=== PATIENT | male | born 1970 | race Caucasian/White ===

== ENCOUNTER 2019-09-16 09:33 | Inpatient (IN) | payer OTHER ==
[~2019-09-16] VITALS: Ht 167.6 cm; Wt 126.5 kg
--- NOTE | 2019-09-16 09:41 | NUR ---
Pt refusing wheelchair from triage to room
--- NOTE | 2019-09-16 10:11 | NUR ---
PT TO ROOM 6 PER PEDIS. PT HAS HAD CHEST PAIN X2 WEEKS, AND AFTER SEEING HIS PCP, HE WAS SENT TO THE ED. PT DENIES PAIN AT THIS TIME. STATES "THE PAIN IN WORSE IN THE EVENING, [place] WHEN WALKING UP THE STAIRS TO BED OR THE HILL TO GET THE MAIL. PT PLACED ON MONITOR, IN GOWN, IV STARTED, CALL LIGHT AND BLANKET DENIED.
[2019-09-16 10:15] LABS: BASOPHILS # (AUTO) 0.03 x10^3/uL (0-0.1); BASOPHILS % (AUTO) 0 % (0-1); EOSINOPHILS # (AUTO) 0.05 x10^3/uL (0-0.4); EOSINOPHILS % (AUTO) 1 % (1-7); LYMPHOCYTES # (AUTO) 2.94 x10^3/uL (1-3.4); LYMPHOCYTES % (AUTO) 27 % (22-44); MD NO; MEAN CORPUSCULAR HEMOGLOBIN 31.6 pg (27.5-34.5); MEAN CORPUSCULAR HGB CONC 33.5 g/dL (33.2-36.2); MEAN CORPUSCULAR VOLUME 94.3 fL (81-97); MEAN PLATELET VOLUME 7.4 fL (7.4-10.4); MONOCYTES # (AUTO) 0.83 x10^3/uL (0.2-0.8); MONOCYTES % (AUTO) 8 % (2-9); NEUTROPHILS # (AUTO) 6.97 x10^3/uL (1.8-6.8); NEUTROPHILS % (AUTO) 65 % (42-75); PLATELET COUNT 355 x10^3/uL (130-400); RED CELL DISTRIBUTION WIDTH 12.9 % (9.4-14.8)
[2019-09-16 10:26] LABS: ALANINE AMINOTRANSFERASE 31 U/L (12-78); ALBUMIN 3.8 g/dL (3.4-5.0); ANION GAP 7 mmol/L (5-15); CALCIUM 8.9 mg/dL (8.5-10.1); CHLORIDE 106 mmol/L (98-107); CREATININE 0.87 mg/dL (0.7-1.3)
[2019-09-16 10:31] LABS: ALKALINE PHOSPHATASE 81 U/L (45-117); BILIRUBIN,TOTAL 0.4 mg/dL (0.2-1.0); TOTAL PROTEIN 7.5 g/dL (6.4-8.2)
[2019-09-16 10:34] LABS: TROPONIN I 0.162 ng/mL (0.000-0.045)
[2019-09-16] MEDS ORDERED: HEPARIN 5,000 UNITS/ML, 1ML IV PRN (11:00)
[2019-09-16] MEDS ORDERED: HEPARIN 25,000 UNITS/250ML PMX 250 ML IV PRN (11:00)
[2019-09-16] MEDS ORDERED: HEPARIN 5,000 UNITS/ML, 1ML IV ONE (11:00)
[2019-09-16 11:07] LABS: INTERNATIONAL NORMALIZED RATIO 0.94 (0.93-1.1)
[2019-09-16] MEDS ORDERED: LISINOPRIL 10 MG TABLET PO ONE (12:00)
[2019-09-16] MEDS ORDERED: NITROGLYCERIN 0.4 MG BOTTLE (25 TABS) SL PRN ×2 (12:00)
[2019-09-16] MEDS ORDERED: SODIUM CHLORIDE 0.9% 1,000 ML IV SCH ×2 (12:00→14:40)
[2019-09-16] MEDS ORDERED: LABETALOL 5MG/ML, 20ML IVPush PRN (12:00)
[2019-09-16] MEDS ORDERED: hydrALAzine 20 MG/ML, 1ML IVPush PRN (12:00)
[2019-09-16] MEDS ORDERED: IBUPROFEN 600 MG TABLET PO PRN (12:00)
[2019-09-16] MEDS ORDERED: POLYETHYLENE GLYCOL 17 GM PACKET PO PRN (12:00)
[2019-09-16] MEDS ORDERED: METOPROLOL TARTRATE 25 MG TAB PO ONE (12:00)
[2019-09-16] MEDS ORDERED: DOCUSATE 100 MG CAPSULE PO PRN (12:00)
[2019-09-16] MEDS ORDERED: ONDANSETRON ODT 4 MG PO PRN (12:00)
[2019-09-16] MEDS ORDERED: NITROGLYCERIN 0.4 MG/SPRAY SL PRN (12:00)
[2019-09-16] MEDS ORDERED: NICOTINE 7 MG/24 HR PATCH.TD24 TD SCH (12:00)
[2019-09-16] MEDS ORDERED: METOCLOPRAMIDE 5 MG/ML, 2ML IVPush PRN (12:00)
[2019-09-16] MEDS ORDERED: TRAZODONE 50MG TABLET PO PRN (12:00)
[2019-09-16 12:24] LABS: FREE T4 (FREE THYROXINE) 1.25 ng/dL (0.76-1.46)
[2019-09-16] MEDS ORDERED: LISINOPRIL 10 MG TABLET ONE (12:52)
[2019-09-16] MEDS ORDERED: METOPROLOL TARTRATE 25 MG TAB ONE (12:52)
[2019-09-16] MEDS ORDERED: IBUPROFEN 200 MG TABLET ONE (12:53)
[2019-09-16] MEDS ORDERED: NICOTINE 7 MG/24 HR PATCH.TD24 ONE (12:53)
[2019-09-16] MEDS ORDERED: FENTANYL PF 100 MCG/2ML ONE (13:39)
[2019-09-16] MEDS ORDERED: VERAPAMIL 2.5 MG/ML, 2ML ONE (13:40)
[2019-09-16] MEDS ORDERED: HEPARIN 1,000 UNITS/ML, 10ML ONE (13:40)
[2019-09-16] MEDS ORDERED: MIDAZOLAM 1 MG/ML, 5ML ONE (13:40)
[2019-09-16] MEDS ORDERED: LIDOCAINE-MPF 1%, 5ML ONE (13:40)
[2019-09-16] MEDS ORDERED: BIVALIRUDIN 250 MG ONE (13:40)
[2019-09-16] MEDS ORDERED: PRASUGREL 10 MG TABLET ONE (14:34)
[2019-09-16] MEDS ORDERED: BIVALIRUDIN 250 MG in SODIUM CHLORIDE 0.9% 50 ML IV SCH (14:40)
[2019-09-16] MEDS: POTASSIUM CHLORIDE 20 MEQ TAB.ER.PRT PO SCH ×2 (16:18→17:39)
[2019-09-16 16:29] VITALS: BP 152/92
[2019-09-16] MEDS ORDERED: AMLO5TAB10 PO (17:35)
[2019-09-16] MEDS ORDERED: LISI1TAB19 PO (17:35)
[2019-09-16 17:53] LABS: TROPONIN I 0.297 ng/mL (0.000-0.045)
[2019-09-16] MEDS ORDERED: ACETAMINOPHEN 325 MG TABLET PO PRN (18:00)
[2019-09-16] MEDS ORDERED: AMLODIPINE 5 MG TABLET PO SCH (18:00)
[2019-09-16 19:07] VITALS: BP 137/80
[2019-09-16] MEDS: FAMOTIDINE 20 MG TABLET PO SCH (20:20)
[2019-09-16] MEDS ORDERED: ATORVASTATIN 40 MG TABLET PO SCH (21:00)
[2019-09-16 21:43] LABS: TROPONIN I 0.411 ng/mL (0.000-0.045)
[2019-09-16 23:37] VITALS: BP 131/86
[2019-09-17 00:55] VITALS: BP 134/83
[2019-09-17 05:35] LABS: BASOPHILS # (AUTO) 0.02 x10^3/uL (0-0.1); BASOPHILS % (AUTO) 0 % (0-1); EOSINOPHILS # (AUTO) 0.16 x10^3/uL (0-0.4); EOSINOPHILS % (AUTO) 2 % (1-7); LYMPHOCYTES # (AUTO) 2.95 x10^3/uL (1-3.4); LYMPHOCYTES % (AUTO) 30 % (22-44); MD NO; MEAN CORPUSCULAR HEMOGLOBIN 32.1 pg (27.5-34.5); MEAN CORPUSCULAR HGB CONC 34.2 g/dL (33.2-36.2); MEAN CORPUSCULAR VOLUME 93.7 fL (81-97); MEAN PLATELET VOLUME 7.5 fL (7.4-10.4); MONOCYTES # (AUTO) 0.79 x10^3/uL (0.2-0.8); MONOCYTES % (AUTO) 8 % (2-9); NEUTROPHILS # (AUTO) 5.86 x10^3/uL (1.8-6.8); NEUTROPHILS % (AUTO) 60 % (42-75); PLATELET COUNT 324 x10^3/uL (130-400); RED BLOOD COUNT 4.83 x10^6/uL (4.38-5.82); RED CELL DISTRIBUTION WIDTH 12.5 % (9.4-14.8)
[2019-09-17 05:46] LABS: ALBUMIN 3.4 g/dL (3.4-5.0); ANION GAP 7 mmol/L (5-15); CHLORIDE 109 mmol/L (98-107)
[2019-09-17 05:55] LABS: ALANINE AMINOTRANSFERASE 30 U/L (12-78); ALKALINE PHOSPHATASE 75 U/L (45-117); BILIRUBIN,TOTAL 0.6 mg/dL (0.2-1.0); CALCIUM 8.6 mg/dL (8.5-10.1); CHOL/HDL RATIO 6.7; CHOLESTEROL, TOTAL 167 mg/dL (140-239); CREATININE 0.86 mg/dL (0.7-1.3); HDL CHOL % 15 % (26-37); HDL CHOLESTEROL (DIRECT) 25 mg/dL (40-60); LDL CHOLESTEROL,CALCULATED 87 mg/dL (54-169); LDL/HDL RATIO 3.5 (0.5-3.0); TRIGLYCERIDES 273 mg/dL (50-200); VLDL CHOLESTEROL 55 mg/dL (0-25)
[2019-09-17] MEDS ORDERED: ASPIRIN 325 MG TABLET EC PO SCH (06:00)
[2019-09-17] MEDS: FAMOTIDINE 20 MG TABLET PO SCH (08:18)
[2019-09-17 08:30] VITALS: BP 151/95
[2019-09-17] MEDS ORDERED: PRASUGREL 10 MG TABLET PO SCH (09:00)
[2019-09-17] MEDS ORDERED: METO25TA91 PO (10:01)
[2019-09-17] MEDS ORDERED: ATOR40TA78 PO (10:01)
[2019-09-17] MEDS ORDERED: PRAS10TA4 PO (10:01)
[2019-09-17] MEDS ORDERED: ASPI81TA45 PO (11:20)
[2019-09-18] MEDS ORDERED: ASPIRIN 81 MG TABLET EC PO SCH (06:00)
[2019-09-18] MEDS ORDERED: METOPROLOL SUCCINATE 25 MG TAB.ER.24H PO SCH (06:00)
== END 2019-09-17 12:38 | disposition home or self-care (01) | DRG 247 ==
LOC: ED 10:19 → EDIP 10:43 → 5SO 12:43
PROVIDERS: ADMIT Internal Medicine; ATTEND Family Medicine
PROC: 027034Z Dilation of Coronary Artery, One Artery with Drug-eluting Intraluminal Device, Percutaneous Approach (ICD-10-PCS; principal; 2019-09-16)
PROC: 4A023N7 Measurement of Cardiac Sampling and Pressure, Left Heart, Percutaneous Approach (ICD-10-PCS; 2019-09-16)
PROC: B211YZZ Fluoroscopy of Multiple Coronary Arteries using Other Contrast (ICD-10-PCS; 2019-09-16)
PROC: B215YZZ Fluoroscopy of Left Heart using Other Contrast (ICD-10-PCS; 2019-09-16)
DX: I25.110 Atherosclerotic heart disease of native coronary artery with unstable angina pectoris (principal); Z68.42 Body mass index [BMI] 45.0-49.9, adult; E66.9 Obesity, unspecified; E78.5 Hyperlipidemia, unspecified; E87.6 Hypokalemia; G47.30 Sleep apnea, unspecified; I10 Essential (primary) hypertension; Z79.82 Long term (current) use of aspirin; Z87.891 Personal history of nicotine dependence
CPT/HCPCS: 36415; 93458; 99291; C9600; 71045; 80053; 80061; 83036; 83735; 84100; 84439; 84443; 84484; 85025; 85520; 85610; 85730; 93005; 99156; 99157; C1769; C1894; G0378; J0583; J1644; J2250; J3010; C1725; C1874; C1887; Q9967